=== PATIENT | female | born 1985 | race Caucasian/White ===

== ENCOUNTER 2016-12-07 06:05 | Day surgery (SDC) | payer MEDICAID ==
[2016-12-06 11:30] LABS: ADD SCAN DIFF NO
[2016-12-06 11:39] LABS: BASOPHILS % 0.5 % (0.0-2.0); EOSINOPHILS # 0.3 10^3/ul (0.0-0.5); EOSINOPHILS % 4.2 % (0.0-7.0); HEMATOCRIT 37.2 % (37.0-47.0); HEMOGLOBIN 12.3 g/dl (12.0-16.0); LYMPHOCYTES # 1.3 10^3/ul (0.8-2.9); LYMPHOCYTES % 22.2 % (15.0-51.0); MEAN CORPUSCULAR HEMOGLOBIN 30.4 pg (29.0-33.0); MEAN CORPUSCULAR HGB CONC 33.1 g/dl (32.0-37.0); MEAN CORPUSCULAR VOLUME 92.1 fl (82.0-101.0); MEAN PLATELET VOLUME 9.9 fl (7.4-10.4); MONOCYTE # 0.6 10^3/ul (0.3-0.9); MONOCYTES % 10.4 % (0.0-11.0); NEUTROPHIL # 3.7 10^3/ul (1.6-7.5); NEUTROPHILS % 62.4 % (39.0-77.0); PLATELET COUNT 271 10^3/UL (140-415); RED BLOOD COUNT 4.04 10^6/ul (4.20-5.40); RED CELL DISTRIBUTION WIDTH 13.4 % (11.5-14.5); WHITE BLOOD COUNT 5.9 10^3/ul (4.8-10.8)
[2016-12-06 12:04] LABS: PROTIME 13.2 Sec (12.2-14.2)
[2016-12-06 12:05] LABS: PARTIAL THROMBOPLASTIN TIME 29.2 Sec (25.0-35.0)
[2016-12-06 12:07] LABS: ADD UMIC YES; URINE BILIRUBIN (Dip) NEGATIVE (NEGATIVE); URINE BLOOD (Dip) 2+ (NEGATIVE); URINE COLOR LT. YELLOW (YELLOW); URINE GLUCOSE (Dip) NEGATIVE (NEGATIVE); URINE KETONES (Dip) NEGATIVE (NEGATIVE); URINE LEUKOCYTE ESTERASE (Dip) NEGATIVE (NEGATIVE); URINE NITRITE (Dip) NEGATIVE (NEGATIVE); URINE TOTAL PROTEIN (Dip) NEGATIVE (NEGATIVE); URINE UROBILINOGEN (Dip) 0.2 E.U./dL (0.1-1.0)
[2016-12-06 12:17] LABS: BACTERIA,URINE RARE
[2016-12-06 12:18] LABS: ALBUMIN 4.5 g/dl (3.3-4.9); ALBUMIN/GLOBULIN RATIO 1.66; BILIRUBIN,INDIRECT 0.2 mg/dl (0-1.1); BILIRUBIN,TOTAL 0.2 mg/dl (0.2-1.3); TOTAL PROTEIN 7.2 g/dl (6.1-8.1)
[2016-12-06 12:27] LABS: CREATININE 0.59 mg/dl (0.44-1.00)
[2016-12-07] VITALS (18 sets, daily range): BP systolic 85–107; BP diastolic 46–67; PULSE 58–76; RESP 12–20; Ht 154.9 cm; Wt 50.7 kg
[~2016-12-07] VITALS: Ht 154.9 cm; Wt 50.7 kg
[~2016-12-07 06:05] MED LIST: LACTATED RINGER'S 1,000 ML IV* SCH
[2016-12-07] MEDS ORDERED: CEFAZOLIN 1 GM INJ ONE (07:00)
[2016-12-07] MEDS ORDERED: BUPIVACAINE 0.25%/EPI (SDV) 30 ML INJ ONE (07:44)
[2016-12-07] MEDS ORDERED: FENTAnyl 50 MCG/ML VIAL ONE (08:23)
[2016-12-07] MEDS ORDERED: MIDAZOLAM 1 MG/ML 2 ML INJ ONE (08:24)
--- NOTE | 2016-12-07 09:15 | PD.PPDC ---
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
[2016-12-07] MEDS ORDERED: GLYCOPYRROLATE 0.4 MG INJ ONE (09:16)
[2016-12-07] MEDS ORDERED: LACTATED RINGER'S 1,000 ML IV SCH (09:17)
[2016-12-07] MEDS ORDERED: PROPOFOL 20 ML ONE (09:17)
[2016-12-07] MEDS ORDERED: ROCURONIUM 50 MG INJ ONE (09:17)
[2016-12-07] MEDS ORDERED: LIDOCAINE 2% (SDV) 5 ML INJ ONE (09:17)
[2016-12-07] MEDS ORDERED: NEOSTIGMINE 3 MG/3 ML SYRINGE ONE (09:17)
[2016-12-07] MEDS ORDERED: ONDANSETRON 4 MG INJ ONE (09:17)
[2016-12-07] MEDS ORDERED: KETOROLAC 30 MG INJ ONE (09:22)
[2016-12-07] MEDS ORDERED: DIPHENHYDRAMINE 50 MG INJ IV PRN (09:30)
[2016-12-07] MEDS ORDERED: FENTAnyl 50 MCG/ML VIAL IV PRN (09:30)
[2016-12-07] MEDS ORDERED: MEPERIDINE 25 MG INJ IV PRN (09:30)
[2016-12-07] MEDS ORDERED: ACETAMINOPHEN 325 MG TAB PO PRN (09:30)
[2016-12-07] MEDS ORDERED: HYDROmorphONE (0.2 MG/ML) 10ML SYG IV PRN ×2 (09:30)
[2016-12-07] MEDS ORDERED: OXYCODONE/ACETAMINOPHEN (5/325) TAB PO PRN ×2 (09:30)
[2016-12-07] MEDS ORDERED: METOCLOPRAMIDE 10 MG INJ IV PRN (09:30)
[2016-12-07] MEDS ORDERED: morphine 2 MG INJ IV PRN (09:30)
[2016-12-07] MEDS ORDERED: IBUPROFEN 600 MG TAB PO PRN (09:30)
[2016-12-07] MEDS ORDERED: ONDANSETRON 4 MG INJ IV PRN ×2 (09:30)
--- NOTE | 2016-12-07 10:01 | OPR ---
DATE OF OPERATION: 12/07/2016 PREOPERATIVE DIAGNOSES: Multiparity. POSTOPERATIVE DIAGNOSIS: Multiparity. PROCEDURE PERFORMED Laparoscopic bilateral tubal ligation. SURGEON: Martinez Canseco MD. ANESTHESIA: General with endotracheal intubation. ANESTHESIOLOGIST: Daniel Dave MD ESTIMATED BLOOD LOSS: Negligible. SPECIMENS: None. COMPLICATIONS: None. PROCEDURE AND FINDINGS: With the patient under general anesthesia, she was laid on the table in the dorsal lithotomy position. Her abdomen and upper thighs were prepped with ChloraPrep and her perin eum and vagina with Betadine. After 3 minutes, she was then dressed in a normal sterile fashion. Small 5 mm incision was done at the level of the umbilicus. Through this incision and while we were tenting up the anterior abdominal wall, the Veress needle was inserted. Once the tip of the needle was ascertained to be intraperitoneal by the hanging drop saline technique, it was then connected t o the CO2 insufflator. Good pneumoperitoneum was obtained. The needle was removed. A 5 mm trocar was then passed in while we were tenting up the anterior abdominal wall. Through this port, a 5 mm laparoscope with Endocamera was inserted. The patient was placed in Trendelenburg position. The ut erus, tubes and ovaries were found to be normal as well as the rest of the pelvis. A second port wa s installed under direct vision in the hypogastric area with another 5 mm trocar. Through this port , now the Kleppinger clamp was inserted with the gyrus device at 35 osorio of current. The right tub e was picked up in its mid portion and burned [id number] for 1.5 cm. This was repeated on the contralateral side. There were no incidents and no bleeding. Pictures were taken for documenta tion. All the instruments were then removed from the patient's abdomen as well as much of CO2 as was possi ble. The incisions were infiltrated with 0.5% Marcaine with epinephrine and then closed with 4-0 Mo nocryl. Band-Aids were applied. The patient was taken to recovery room with all vital signs stable . EBL was negligible. Needle, sponge and instrument count at the end of the procedure was correct twice. Dictated By: MARTINEZ DAVILA/NTS Conf#: [id number] DID#: [id number]
== END 2016-12-07 12:55 | disposition home or self-care (01) ==
LOC: SDS 06:05
PROVIDERS: ATTEND Specialist
DX: Z30.2 Encounter for sterilization (principal)
CPT/HCPCS: 58670; 80053; 81001; 84703; 85025; 85610; 85730; 86850; 86900; 86901; J0690; J1170; J1885; J2175; J2250; J2405; J2710; J3010; Z7512; Z7610